=== PATIENT | female | born 1970 | race Two or more races ===

== ENCOUNTER 2017-03-10 20:25 | Emergency (ER) | payer OTHER, BC ==
[2017-03-10 20:50] VITALS: BP 123/73; PULSE 78; TEMP 98.9; BMI 33.9
--- NOTE | 2017-03-10 21:26 | PDOC ---
History of Present Illness - General History Source: Patient Exam Limitations: No Limitations - History of Present Illness Initial Comments: The patient is a 36 yo F with no pertinent past medical history who presents with a laceration on the R hand. The patient states she was using an apple cutter and the handle broke and the blade went into her hand. The patient states her last tetanus shot was in 2008. The patient does report a tick bite in December but denies any symptoms of Lyme disease. The patient denies trauma to any other areas. Allergies: NKDA <Akiko Mitchell - Last Filed: 03/10/17 21:26> <Madhavi Ho - Last Filed: 03/11/17 03:55> - General Chief Complaint: Laceration Stated Complaint: CUT RIGHT HAND WITH APPLE SLICER Time Seen by Provider: 03/10/17 20:28 Past History <Akiko Mitchell - Last Filed: 03/10/17 21:26> - Past Medical History Other medical history: DENIES - Psycho/Social/Smoking Cessation Hx Anxiety: No Suicidal Ideation: No Smoking History: Never smoked Have you smoked in the past 12 months: No Information on smoking cessation initiated: Yes Hx Alcohol Use: Yes (OCCAS.) Drug/Substance Use Hx: No Substance Use Type: None <Madhavi Ho - Last Filed: 03/11/17 03:55> - Past Medical History Allergies/Adverse Reactions: Allergies Allergy/AdvReac Type Severity Reaction Status Date / Time No Known Allergies Allergy Verified 03/10/17 20:29 Home Medications: Ambulatory Orders NK [No Known Home Medication] 03/10/17 Review of Systems - Review of Systems Able to Perform ROS?: Yes Comments:: CONSTITUTIONAL: Absent: fever, no chills, no fatigue EYES: Absent: visual changes ENT: Absent: ear pain, no sore throat CARDIOVASCULAR: Absent: chest pain, no palpitations RESPIRATORY: Absent: cough, no SOB GI: Absent: abdominal pain, no nausea, no vomiting, no constipation, no diarrhea GENITOURINARY: Absent: dysuria, no frequency, no hematuria MUSKULOSKELETAL: Absent: back pain, no arthralgia, no myalgia SKIN: +Laceration to R thumb. Absent: rash <Akiko Mitchell - Last Filed: 03/10/17 21:26> *Physical Exam - Vital Signs Last Vital Signs Temp Pulse Resp BP Pulse Ox 98.9 F 78 16 123/73 96 03/10/17 20:30 03/10/17 20:30 03/10/17 20:30 03/10/17 20:30 03/10/17 20:30 - Physical Exam Comments: GENERAL: Well-appearing, well-nourished. No apparent distress. HEENT: Normocephalic, atraumatic. PERRL, EOM intact. CARDIOVASCULAR: Normal S1, S2. Regular rate and rhythm. PULMONARY: Clear to auscultation bilaterally. ABDOMEN: Soft, non-distended, non-tender. EXTREMITIES: Normal ROM in all four extremities. No gross deformities. SKIN: Warm, dry. No rash. 2 cm linear, full thickness laceration of the base of the R thumb palmar aspect. Motor and sensory functioning intact. Distal aspect was warm and dry with excellent capillary refill. NEUROLOGICAL: No focal neurological deficits. <Akiko Mitchell - Last Filed: 03/10/17 21:26> - Vital Signs Last Vital Signs Temp Pulse Resp BP Pulse Ox 98.9 F 78 16 123/73 96 03/10/17 20:30 03/10/17 20:30 03/10/17 20:30 03/10/17 20:30 03/10/17 20:30 <Madhavi Ho - Last Filed: 03/11/17 03:55> Procedures - Laceration/Wound Repair Right Plantar Hand 1st digit Wound Length: to 2.5 cm Wound Explored: clean Wound's Depth, Shape: linear Irrigated w/ Saline: Yes Betadine Prep: No (Hibiclens/alcohol) Anesthesia: 1% Lidocaine Amount of Anesthetic (ccs): 2 Wound Repaired With: Sutures Suture Size/Type: 4:0 Number of Sutures: 3 Layer Closure: No Sterile Dressing Applied: Yes Splint Applied: No Progress: Area cleansed with Hibiclens/alcohol sterilely draped. 2 mL of 1% lidocaine infiltrated into the wound for local anesthesia. Wound irrigated with 40 mL of sterile normal saline. No evidence of tendon or vascular involvement at the base of the wound. No evidence of foreign body within the wound. Wound closed with careful apposition of wound edges using 3 interrupted sutures of 4-0 nylon. Bacitracin and dry sterile gauze dressing applied to the wound. Patient tolerated procedure well <Madhavi Ho - Last Filed: 03/11/17 03:55> Progress Note - Progress Note Progress Note: Documentation has been prepared under my direction and personally reviewed by me in its entirety. I attest that this documented accurately reflects all work, treatment, procedures and medical decision making performed by me. <Madhavi Ho - Last Filed: 03/11/17 03:55> Medical Decision Making - Medical Decision Making This otherwise healthy 46-year-old woman with no evidence of wound healing problems or resistant organism infection presents with linear laceration of the thenar eminence of the right hand. Patient is up-to-date on her tetanus prophylaxis. On exam as noted , no evidence of tendon or vascular involvement. Repair as noted above. <Madhavi Ho - Last Filed: 03/11/17 03:55> *DC/Admit/Observation/Transfer - Attestations Scribe Attestion: Documentation prepared by Akiko Mitchell, acting as medical photographer for Madhavi Ho MD/. <Akiko Mitchell - Last Filed: 03/10/17 21:26> <Madhavi Ho - Last Filed: 03/11/17 03:55> Diagnosis at time of Disposition: Thumb laceration Qualifiers: Encounter type: initial encounter Damage to nail status: without damage Foreign body presence: without foreign body Laterality: right Qualified Code(s) : S61.011A - Laceration without foreign body of right thumb without damage to nail, initial encounter - Discharge Dispostion Disposition: HOME Condition at time of disposition: Stable - Referrals Referrals: Sander Ibarra [Primary Care Provider] - - Patient Instructions Printed Discharge Instructions: How to Care for a Laceration After Repair Additional Instructions: Elevate right hand tonight is much as possible Keep original dressing in place for 2 days, as dry as possible Ibuprofen/naproxen/acetaminophen as needed for pain After first 48 hours, covered during day/open at night Return or see your doctor if wound becomes red/swollen/painful Have sutures removed on March 18
== END 2017-03-10 21:37 | disposition home or self-care (01) ==
LOC: FER 20:25
PROC: 0HQFXZZ Repair Right Hand Skin, External Approach (ICD-10-PCS; principal; 2017-03-10)
DX: S61.011A Laceration without foreign body of right thumb without damage to nail, initial encounter (principal); W27.4XXA Contact with kitchen utensil, initial encounter; Y93.G1 Activity, food preparation and clean up; Y92.9 Unspecified place or not applicable
CPT/HCPCS: 99281-25